=== PATIENT | female | born 1950 | race Caucasian/White ===

== ENCOUNTER → 2022-04-26 13:48 | Outpatient (REF) | payer OTHER, SELFPAY | LOC: ANHLAB 13:48 | PROVIDERS: Visit Provider Nurse Practitioner | DX: R22.9 Localized swelling, mass and lump, unspecified (principal) | CPT/HCPCS: 88304 ==

== ENCOUNTER 2023-03-21 09:00 | Outpatient (NON) | payer OTHER, SELFPAY | END 2023-03-21 09:01 | disposition home or self-care (01) | LOC: ANHLAB 03-23 11:16 | PROVIDERS: Visit Provider Nurse Practitioner | DX: R22.9 Localized swelling, mass and lump, unspecified (principal) | CPT/HCPCS: 88304 ==